=== PATIENT | female | born 1995 | race Caucasian/White ===

== ENCOUNTER → 2016-12-14 21:11 | Emergency (ER) | payer BC ==
[~2016-12-14 21:11] MED LIST: NS 0.9% 1000 ML* 1,000 ML IV ONE; Ondansetron INJ* 2 MG/ML VIAL IV ONE; Ondansetron INJ* 2 MG/ML VIAL ONE
[2016-12-15 01:20] LABS: Hematocrit 42 % (35-47); Mean Corpuscular HGB Conc 34 g/dl (31-36); Mean Corpuscular Hemoglobin 30 pg (27-31); Mean Corpuscular Volume 88 fL (80-97); Mean Platelet Volume 8 um3 (7.4-10.4); Red Blood Count 4.73 10^6/ul (4.0-5.4); Red Cell Distribution Width 13 % (10.5-15); White Blood Count 7.1 10^3/ul (3.5-10.8)
[2016-12-15 01:35] LABS: BUN/Creatinine Ratio 11.4 (8-20); C Reactive Protein 19.69 mg/L (< 5.00); Calcium 9.2 mg/dL (8.6-10.3); EGFR African American 118.1 (>60); EGFR Non-African American 91.9 (>60); Globulin 3.2 g/dL (2-4); Potassium 3.5 mmol/L (3.5-5.0); Total Bilirubin 0.5 mg/dL (0.2-1.0); Total Protein 7.2 g/dL (6.4-8.9)
--- NOTE | 2016-12-15 02:39 | ED ---
GI/ HPI - HPI Summary HPI Summary: Pt here w/ bloody stool earlier today. Has had URI w/ lingering sinus congestion. Went to [place] a couple of days ago and was rx'd zithromax - has taken 2 days worth of medication - sinuses are better but now has cough. Had bought of diarrhea today - after going multiple times, developed bloody stool. Nonpainful. Reduced appetite but no nina nausea, vomiting or abdominal pain - just feels like stomach is "off". Denies use of NSAID's or h/o easy bleeding. Has had zithromax in the past w/o adverse reaction as well. No h/o GI issues. Sister w/ h/o hemorrhoids. Pt admits her BM's have started with constipation followed by diarrhea. - History of Current Complaint Chief Complaint: EDGIBleed Time Seen by Provider: 12/15/16 00:06 Stated Complaint: BLOOD IN STOOL Hx Obtained From: Patient Pain Intensity: 2 - Allergy/Home Medications Allergies/Adverse Reactions: Allergies Allergy/AdvReac Type Severity Reaction Status Date / Time No Known Allergies Allergy Verified 12/14/16 21:18 PMH/Surg Hx/FS Hx/Imm Hx Previously Healthy: Yes Endocrine/Hematology History: Denies: Hx Anticoagulant Therapy, Hx Blood Disorders, Hx Diabetes, Hx Thyroid Disease, Hx Anemia, Hx Unexplained Bleeding, Autoimmune Disease GI History: Denies: Hx Cirrhosis, Hx Crohn's Disease, Hx Diverticulosis, Hx Gall Bladder Disease, Hx Gastroesophageal Reflux Disease, Hx Gastrointestinal Bleed, Hx Hiatal Hernia, Hx Irritable Bowel, Hx Ulcer Infectious Disease History: No Infectious Disease History: Denies: Traveled Outside the [place] in Last 30 Days - Family History Known Family History: Positive: Other - sister - hemorrhoids - Social History Occupation: Student Lives: Dormitory/Roommates Alcohol Use: Occasionally Hx Substance Use: No Substance Use Type: Reports: None Hx Tobacco Use: No Smoking Status (MU): Never Smoked Tobacco Review of Systems Constitutional: Negative Negative: Fever, Chills, Fatigue Positive: Nasal Discharge - congestion Cardiovascular: Negative Negative: Palpitations, Chest Pain Positive: Cough - dry as in HPI. Negative: Shortness Of Breath Gastrointestinal: Other - see HPI Genitourinary: Negative Negative: burning, dysuria, discharge, frequency, flank pain, hematuria, incontinence, pain, urgency Musculoskeletal: Negative Skin: Negative Negative: Rash, Bruising Neurological: Negative Negative: Headache, Weakness, Paresthesia, Numbness, Syncope, Slurred Speech Psychological: Normal All Other Systems Reviewed And Are Negative: Yes Physical Exam Triage Information Reviewed: Yes Vital Signs On Initial Exam: Initial Vitals Temp Pulse Resp BP Pulse Ox 98.9 F 95 18 131/89 99 12/14/16 21:16 12/14/16 21:16 12/14/16 21:16 12/14/16 21:16 12/14/16 21:16 Vital Signs Reviewed: Yes Appearance: Positive: Well-Appearing, No Pain Distress, Well-Nourished Skin: Positive: Warm, Dry - no ecchymosis Head/Face: Positive: Normal Head/Face Inspection Eyes: Positive: Normal, EOMI, Conjunctiva Clear - anicteric sclera ENT: Positive: Normal ENT inspection, Hearing grossly normal, Pharynx normal, Nasal congestion - mild, TMs normal. Negative: Nasal drainage Neck: Positive: Supple, Nontender, No Lymphadenopathy Respiratory/Lung Sounds: Positive: Clear to Auscultation, Breath Sounds Present. Negative: Rales, Rhonchi, Wheezes Cardiovascular: Positive: Normal, RRR, S1, S2. Negative: Murmur, Rub Abdomen Description: Positive: Nontender, No Organomegaly, Soft, Other: - rectal exam: external w/o hemorrhoids, no blood or d/c; internal: NTTP, no palpable masses or hemorrhoids - kwabena of stool removed from exam, no blood - pt tolerated well. Negative: CVA Tenderness (R), CVA Tenderness (L) Bowel Sounds: Positive: Present Musculoskeletal: Positive: Normal, Strength/ROM Intact Neurological: Positive: Normal, Sensory/Motor Intact, Alert, Oriented to Person Place, Time, CN Intact II-III Psychiatric: Positive: Normal - Isabella Coma Scale Coma Scale Total: 15 Diagnostics - Vital Signs Vital Signs Temp Pulse Resp BP Pulse Ox 12/14/16 21:16 98.9 F 95 18 131/89 99 - Laboratory Lab Results: Lab Results 12/15/16 12/15/16 12/15/16 Range/Units 01:07 01:07 01:07 WBC 7.1 (3.5-10.8) 10^3/ul RBC 4.73 (4.0-5.4) 10^6/ul Hgb 14.0 (12.0-16.0) g/dl Hct 42 (35-47) % MCV 88 (80-97) fL MCH 30 (27-31) pg MCHC 34 (31-36) g/dl RDW 13 (10.5-15) % Plt Count 259 (150-450) 10^3/ul MPV 8 (7.4-10.4) um3 Neut % (Auto) 70.0 (38-83) % Lymph % (Auto) 21.5 L (25-47) % [place] % (Auto) 7.3 (1-9) % Eos % (Auto) 0.6 (0-6) % Baso % (Auto) 0.6 (0-2) % Absolute Neuts (auto) 5.0 (1.5-7.7) 10^3/ul Absolute Lymphs (auto) 1.5 (1.0-4.8) 10^3/ul Absolute Monos (auto) 0.5 (0-0.8) 10^3/ul Absolute Eos (auto) 0 (0-0.6) 10^3/ul Absolute Basos (auto) 0 (0-0.2) 10^3/ul Absolute Nucleated RBC 0 10^3/ul Nucleated RBC % 0.1 Sodium 137 (133-145) mmol/L Potassium 3.5 (3.5-5.0) mmol/L Chloride 105 (101-111) mmol/L Carbon Dioxide 22 (22-32) mmol/L Anion Gap 10 (2-11) mmol/L BUN 9 (6-24) mg/dL Creatinine 0.79 (0.51-0.95) mg/dL Est GFR ( Amer) 118.1 (>60) Est GFR (Non-Af Amer) 91.9 (>60) BUN/Creatinine Ratio 11.4 (8-20) Glucose 90 (70-100) mg/dL Lactic Acid 0.8 (0.5-2.0) mmol/L Calcium 9.2 (8.6-10.3) mg/dL Magnesium 2.0 (1.9-2.7) mg/dL Total Bilirubin 0.50 (0.2-1.0) mg/dL AST 17 (13-39) U/L ALT 12 (7-52) U/L Alkaline Phosphatase 81 (34-104) U/L C-Reactive Protein 19.69 H (< 5.00) mg/L Total Protein 7.2 (6.4-8.9) g/dL Albumin 4.0 (3.2-5.2) g/dL Globulin 3.2 (2-4) g/dL Albumin/Globulin Ratio 1.3 (1-3) Result Diagrams: 12/15/16 01:07 12/15/16 01:07 Lab Statement: Any lab studies that have been ordered have been reviewed, and results considered in the medical decision making process. GIGU Course/Dx - Course Course Of Treatment: Pt reports bloody stools today after multiple bouts of diarrhea. Her vitals and labs are WNL except for crp which is elevated - this may be from her URI and/or inflammatory effects of her diarrhea. W/o nina GI bleed and no issues while here, will be d/c'd to [facility] for f/u. May benefit from colonoscopy. Ordered stool cx here to asses for c. diff. REviewed danger s/sx of when to return to ED. - Diagnoses Provider Diagnoses: Diarrhea Discharge - Discharge Plan Condition: Stable Disposition: HOME Patient Education Materials: Acute Diarrhea (ED) Referrals: Cara Cruz MD [Primary Care Provider] - Additional Instructions: The cause of your diarrhea is not clearly identified tonight however you do not appear to have an active emergent GI bleed tonight. This may have been triggered by your diarrhea or by your antibiotic - advised to stop antibiotic in the event this did cause your symptoms. Stay hydrated with fluids such as water, gatordade, broth, etc. Follow-up with [facility] this week - you may benefit from colonoscopy to assess for cause, including but not limited to hemorrhoids, inflammatory bowel disease, cancer. *If you develop active bleeding from rectum, return to ED *If you develop fever, chills, nausea, vomiting, intractable diarrhea, hives, swelling, abdominal pain, throat tightness and/or breathing difficulties return to ED
[2016-12-15 03:08] VITALS: BP 127/82
== END | disposition home or self-care (01) ==
LOC: ED 21:11
DX: R19.7 Diarrhea, unspecified (principal); R05 Cough
CPT/HCPCS: 36415; 80053; 82272; 83605; 83735; 85025; 86140; 96374; 96375; 99283; J2405